=== PATIENT | female | born 1940 | race Caucasian/White ===

== ENCOUNTER 2018-08-08 10:19 | Inpatient (IN) | payer MEDICARE, OTHER ==
[2018-08-07 09:21] VITALS: BMI 34.4
[2018-08-15] MEDS ORDERED: Sodium Chloride 0.9% 10 ML ONE (06:45)
[2018-08-15 08:33] LABS: Hemoglobin 12.8 g/dL (12.0-16.0); Mean Corpuscular HGB CONC 33.1 g/dL (32.0-36.0); Mean Corpuscular Hemoglobin 29.2 pg (27.0-31.0); Mean Corpuscular Volume 88.1 fL (78.0-98.0); Mean Platelet Volume 6.7 fL (7.4-10.4); Platelet Count 250 thou/uL (130-400); RBC Distribution Width 12.6 % (11.5-14.5); White Blood Cell (WBC) Count 4.8 thou/uL (4.8-10.8)
[2018-08-15] MEDS ORDERED: Fentanyl 100 MCG/2 ML VIAL ONE ×5 (08:38→12:17)
[2018-08-15 08:44] LABS: Anion Gap 13 mmol/L (10-20); BUN (Urea Nitrogen) 16 mg/dL (9.8-20.1); Calc. Creatinine Clearance 78 mL/min (70-130); Calcium 10.5 mg/dL (7.8-10.44); Carbon Dioxide 28 mmol/L (23-31); Chloride 101 mmol/L (98-107); Estimated GFR-MDRD 66; Glucose 132 mg/dL (83-110); Potassium 4.7 mmol/L (3.5-5.1); Sodium 137 mmol/L (136-145)
[2018-08-15] MEDS ORDERED: SUGAMMADEX SODIUM 200 MG/2 ML VIAL ONE (10:28)
--- NOTE | 2018-08-15 10:44 | OP ---
DATE OF PROCEDURE: 08/15/2018 WORK AND FAMILY LIFE CONSULTANT: Cristy Sanchez PA-C PROCEDURE PERFORMED: L4-L5 decompressive laminectomy, posterolateral arthrodesis, pedicle screw instrumentation, left L4-L5 demineralized bone matrix and local morselized autograft. DESCRIPTION OF PROCEDURE: The patient was brought to the operating room and intubated. She was rolled in the prone position on gel-filled chest rolls. An incision was made exposing L4 and L5 and the level was confirmed by x-ray. We performed complete L5 and inferior L4 laminectomy was completed decompressing the neural elements at this level. We placed pedicle screws on the left at L4 and L5 using lateral fluoroscopic guidance and the position was confirmed by x-ray. The randee was secured between the screws and connected by nuts, which were final tightened. The wound was then extensively irrigated and maximum hemostasis was secured. Vancomycin powder was applied and a combination of demineralized bone matrix and local morselized autograft was laid over the right lamina and posterolateral surfaces for the purpose of arthrodesis. The wound was then closed in anatomic layers over drain. Job ID: [id number]
[2018-08-15] MEDS ORDERED: traMADol HCl 50 MG TAB PO PRN ×2 (11:31)
[2018-08-15] MEDS ORDERED: diphenhydrAMINE 25 MG CAP PO PRN (11:31)
[2018-08-15] MEDS ORDERED: Promethazine HCl 12.5 MG SUPP PR PRN (11:31)
[2018-08-15] MEDS ORDERED: Ondansetron PF 4 MG/2 ML Vial IM PRN (11:31)
[2018-08-15] MEDS ORDERED: Mag-Al 1200 mg/1200 mg/30 ML UDCUP PO PRN (11:31)
[2018-08-15] MEDS ORDERED: diphenhydrAMINE 50 MG/ML VIAL IVP PRN (11:31)
[2018-08-15] MEDS ORDERED: Promethazine 25 MG TAB PO PRN (11:31)
[2018-08-15] MEDS ORDERED: Milk Of Magnesia 30 ML UDCUP PO PRN (11:31)
[2018-08-15] MEDS ORDERED: tiZANidine HCl 4 MG TAB PO PRN (11:31)
[2018-08-15] MEDS ORDERED: Morphine 4 MG/ML VIAL SLOW IVP PRN (11:31)
[2018-08-15] MEDS ORDERED: Promethazine HCl 25 MG/ML VIAL IM PRN (11:31)
[2018-08-15] MEDS ORDERED: HYDROcodone/Acetaminophen 10/325 mg Tablet PO PRN ×2 (11:31)
[2018-08-15] MEDS ORDERED: Morphine 2 MG/ML SYRINGE SLOW IVP PRN (11:33)
[2018-08-15] MEDS ORDERED: CEFAZOLIN 2 GM in Premix Bag 1 BAG IVPB SCH (15:00)
[2018-08-15] MEDS: Ketorolac Tromethamine 30 MG/ML VIAL IVP SCH ×3 (15:29→23:39)
[2018-08-15] MEDS: Sodium Chloride 0.9% 1,000 ML IV SCH (15:35)
[2018-08-15] MEDS ORDERED: cloNIDine 0.1 MG TAB PO PRN (15:49)
[2018-08-15] MEDS ORDERED: Calcium Carbonate 500 MG ChewTAB PO PRN (15:49)
[2018-08-15] MEDS ORDERED: Senokot S 8.6-50 MG TAB PO PRN (15:49)
[2018-08-15] MEDS ORDERED: hydrALAZINE 20 MG/ML VIAL SLOW IVP PRN (15:49)
[2018-08-15] MEDS ORDERED: Acetaminophen 500 MG TAB PO PRN (15:49)
[2018-08-15] MEDS ORDERED: Benzonatate 100 MG CAP PO PRN (15:49)
[2018-08-15] MEDS ORDERED: Bisacodyl 5 MG TAB PO PRN (15:49)
[2018-08-15] MEDS ORDERED: Dextrose 5% in Water 1,000 ML IV PRN (15:49)
[2018-08-15] MEDS ORDERED: HumaLOG 300 UNITS/3 ML VIAL SC PRN ×2 (15:49)
[2018-08-15] MEDS ORDERED: Dextrose 50% Abboject 50 ML SYRINGE SLOW IVP PRN (15:49)
[2018-08-15] MEDS ORDERED: Diabetic Tussin 200 MG/10 ML UDCUP PO PRN (15:49)
--- NOTE | 2018-08-15 16:38 | PDOC.PN ---
- Subjective Encounter Start Date: 08/15/18 Encounter Start Time: 16:36 Subjective: s/p Lumbar laminectomy.feels well.pain under control -: no CP/Cough/SOB/dysuria/N/V/D - Objective MAR Reviewed: Yes Vital Signs & Weight: Vital Signs (12 hours) Pulse Ox 08/15/18 12:45 93 L Weight Weight 188 lb I&O: 08/14/18 08/15/18 08/16/18 06:59 06:59 06:59 Output Total 50 Balance -50 Result Diagrams: 08/15/18 08:14 08/15/18 08:14 Additional Labs: Accuchecks 08/15/18 14:47 POC Glucose 180 H Laboratory Tests 08/15/18 08/15/18 08:14 08:14 WBC 4.8 Hgb 12.8 Plt Count 250 BUN 16 Creatinine 0.84 Phys Exam - Physical Examination Constitutional: NAD HEENT: PERRLA, moist MMs, sclera anicteric, oral pharynx no lesions Neck: no nodes, no JVD, supple, full ROM Respiratory: no wheezing, no rales, no rhonchi, clear to auscultation bilateral Cardiovascular: RRR, no significant murmur, no rub Gastrointestinal: soft, non-tender, no distention, positive bowel sounds Musculoskeletal: no edema, pulses present Neurological: non-focal, normal sensation, moves all 4 limbs Dx/Plan (1) HTN (hypertension) Code(s): I10 - ESSENTIAL (PRIMARY) HYPERTENSION Status: Chronic Comment: stable. cont Amlodipine,Prinizide. Add prn antihypertensives (2) HLD (hyperlipidemia) Code(s): E78.5 - HYPERLIPIDEMIA, UNSPECIFIED Status: Chronic Comment: stable. cont Statin (3) DM2 (diabetes mellitus, type 2) Status: Chronic Comment: controlled. Add ISS w accuchecks. Hold Metformin for now (4) S/P lumbar laminectomy Code(s): Z98.890 - OTHER SPECIFIED POSTPROCEDURAL STATES Status: Acute Comment: pain control and rehab per Primary team - Plan plan discussed w/ family, out of bed/ambulate, DVT proph w/SCDs AM labs -: HD stable -: pr meds -: Pepcid BID -: ASA when Ok w NS * . Review of Systems - Review of Systems Constitutional: negative: fever, chills, sweats, weakness, malaise, other ENT: negative: Ear Pain, Ear Discharge, Nose Pain, Nose Discharge, Nose Congestion, Mouth Pain, Mouth Swelling, Throat Pain, Throat Swelling, Other Respiratory: negative: Cough, Dry, Shortness of Breath, Hemoptysis, SOB with Excertion, Pleuritic Pain, Sputum, Wheezing Cardiovascular: negative: chest pain, palpitations, orthopnea, paroxysmal nocturnal dyspnea, edema, light headedness, other Gastrointestinal: negative: Nausea, Vomiting, Abdominal Pain, Diarrhea, Constipation, Melena, Hematochezia, Other Genitourinary: negative: Dysuria, Frequency, Incontinence, Hematuria, Retention , Other Skin: negative: Rash, Lesions, Myn[place], Bruising, Other Neurological: negative: Weakness, Numbness, Incoordination, Change in Speech, Confusion, Seizures, Other - Medications/Allergies Allergies/Adverse Reactions: Allergies Allergy/AdvReac Type Severity Reaction Status Date / Time No Known Allergies Allergy Unverified 08/07/18 09:21 Medications: Current Medications Acetaminophen (Tylenol) 500 mg PO Q4H PRN PRN Reason: Fever > 101 Hydrocodone Bitart/Acetaminophen ([place] 10/325) 1 tab PO Q4H PRN PRN Reason: PAIN (1-3) Hydrocodone Bitart/Acetaminophen ([place] 10/325) 2 tab PO Q4H PRN PRN Reason: PAIN (4-6) Al Hydroxide/Mg Hydroxide (Maalox) 30 ml PO Q4H PRN PRN Reason: Heartburn or Indigestion Amlodipine Besylate (Norvasc) 10 mg PO DAILY [facility] Ascorbic Acid (Vitamin C) 500 mg PO DAILY [facility] Atorvastatin Calcium (Lipitor) 10 mg PO HS [facility] Benzonatate (Tessalon) 100 mg PO Q6H PRN PRN Reason: Cough Bisacodyl (Dulcolax) 10 mg PO DAILYPRN PRN PRN Reason: Constipation Calcium Carbonate (Tums) 1,000 mg PO Q4H PRN PRN Reason: Heartburn or Indigestion Cholecalciferol (Vitamin D) 400 units PO SuMoWeFrSa [facility] Cholecalciferol (Vitamin D) 800 units PO TuTh [facility] Clonidine (Catapres) 0.1 mg PO Q4H PRN PRN Reason: SBP > 160____ Coenzyme Q10 (Coenzyme Q10) 50 mg PO DAILY [facility] Cyanocobalamin (Vitamin B-12) 1,000 mcg PO DAILY [facility] Dextrose/Water (Dextrose 50%) 25 gm SLOW IVP PRN PRN PRN Reason: Hypoglycemia Diphenhydramine HCl (Benadryl) 25 mg PO Q6H PRN PRN Reason: Itching Diphenhydramine HCl (Benadryl) 25 mg IVP Q6H PRN PRN Reason: Itching Famotidine (Pepcid) 20 mg PO BID [facility] Glucagon (Glucagon) 1 mg IM PRN PRN PRN Reason: Hypoglycemia Guaifenesin (Robitussin Sf) 200 mg PO Q4H PRN PRN Reason: Cough Lisinopril/HCTZ (Prinizide 20-25) 1 tab PO DAILY [facility] Hydralazine HCl (Apresoline) 10 mg SLOW IVP Q4H PRN PRN Reason: SBP > 180 and HR < 70 Sodium Chloride (Normal Saline 0.9%) 1,000 mls @ 75 mls/hr IV .[id number] [facility] Last Admin: 08/15/18 15:35 Dose: Not Given Cefazolin Sodium/Dextrose 2 gm (/ Device) 50 mls @ 100 mls/hr IVPB 1500,2300 [facility] Stop: 08/15/18 23:29 Last Admin: 08/15/18 15:29 Dose: 50 mls Dextrose/Water (D5w) 1,000 mls @ 0 mls/hr IV .Q0M PRN PRN Reason: Hypoglycemia Insulin Human Lispro (Humalog) 0 units SC .MODERATE SLIDING SC PRN PRN Reason: Moderate Correctional Scale Insulin Human Lispro (Humalog) 0 units SC .BEDTIME SLIDING SC PRN PRN Reason: Bedtime Correctional Scale Ketorolac Tromethamine (Toradol) 15 mg IVP Q6HR [facility] Stop: 08/17/18 06:01 Last Admin: 08/15/18 15:29 Dose: Not Given Magnesium Hydroxide (Milk Of Magnesium) 30 ml PO Q12H PRN PRN Reason: Constipation Morphine Sulfate (Morphine) 2 mg SLOW IVP Q1H PRN PRN Reason: MOD BREAKTHRU PAIN Morphine Sulfate (Morphine) 4 mg SLOW IVP Q1H PRN PRN Reason: SEVERE BREAKTHROUGH PAIN Multivitamins (Theragran) 1 tab PO DAILY [facility] Multivitamins/Zinc (Stress 600 With Zinc) 1 tab PO DAILY [facility] Ondansetron HCl (Zofran) 4 mg IM Q24H PRN PRN Reason: Nausea/Vomiting Potassium Chloride (K-Dur) 20 meq PO QAM [facility] Promethazine HCl (Phenergan) 12.5 mg IM Q4H PRN PRN Reason: Nausea/Vomiting Promethazine HCl (Phenergan) 12.5 mg PO Q4H PRN PRN Reason: Nausea/Vomiting Promethazine HCl (Phenergan Suppository) 12.5 mg FL Q4H PRN PRN Reason: Nausea/Vomiting Senna/Docusate Sodium (Senokot S) 2 tab PO BID PRN PRN Reason: Constipation Sodium Chloride (Flush - Normal Saline) 10 ml IVF Q12HR [facility] Sodium Chloride (Flush - Normal Saline) 10 ml IVF PRN PRN PRN Reason: Saline Flush Tizanidine HCl (Zanaflex) 4 mg PO Q6H PRN PRN Reason: MUSCLE SPASM Tramadol HCl (Ultram) 50 mg PO Q6H PRN PRN Reason: PAIN (1-3) Tramadol HCl (Ultram) 100 mg PO Q6H PRN PRN Reason: PAIN (4-6)
[2018-08-15] MEDS ORDERED: metFORMIN 500 MG TAB PO SCH (17:00)
[2018-08-15] MEDS ORDERED: Atorvastatin Calcium 10 MG TAB PO SCH (21:00)
[2018-08-15] MEDS: Famotidine 20 MG TAB PO SCH (21:36)
[2018-08-15] MEDS: CEFAZOLIN 2 GM in Premix Bag 1 BAG IVPB SCH (23:38)
[2018-08-16] MEDS: Sodium Chloride 0.9% 1,000 ML IV SCH (01:28)
[2018-08-16] MEDS: CEFAZOLIN 2 GM in Premix Bag 1 BAG IVPB SCH (06:21)
[2018-08-16] MEDS: Ketorolac Tromethamine 30 MG/ML VIAL IVP SCH (06:22)
[2018-08-16] MEDS ORDERED: Potassium Chloride 20 MEQ TAB PO SCH (09:00)
[2018-08-16] MEDS ORDERED: Lisinopril/Hydrochlorothiazide 20/25 mg Tablet PO SCH (09:00)
[2018-08-16] MEDS ORDERED: Multivit, Therapeutic 1 TAB PO SCH (09:00)
[2018-08-16] MEDS ORDERED: Ubidecarenone 50 MG CAP PO SCH (09:00)
[2018-08-16] MEDS ORDERED: Ascorbic Acid 500 mg Chewable Tablet PO SCH (09:00)
[2018-08-16] MEDS ORDERED: TUMERIC FS SCH (09:00)
[2018-08-16] MEDS ORDERED: Cholecalciferol (Vitamin D3) 400 UNITS TAB PO SCH (09:00)
[2018-08-16] MEDS ORDERED: Amlodipine 10 MG TAB PO SCH (09:00)
[2018-08-16] MEDS ORDERED: Stress 600 With Zinc 1 TAB PO SCH (09:00)
[2018-08-16] MEDS ORDERED: Cyanocobalamin (Vitamin B-12) 1,000 MCG TAB PO SCH (09:00)
[2018-08-16] MEDS ORDERED: ST JOHN S WORT FS SCH (09:00)
[2018-08-16 09:09] VITALS: BP 135/72; TEMP 98.1
[2018-08-16] MEDS: Famotidine 20 MG TAB PO SCH (09:17)
--- NOTE | 2018-08-16 11:40 | DIS ---
DATE OF ADMISSION: 08/15/2018 DATE OF DISCHARGE: 08/16/2018 The patient is a 77-year-old female, status post L4-L5 decompression and fusion. Following the surgery, she was transitioned to the Med/Surg floor, where her pain has been well controlled with p.o. medication. She has only required one p.o. [place] tab overnight. She has been following a regular diet, tolerating well and she has been voiding appropriately. She has walked several laps throughout the department without any difficulty. This morning, she is awake, alert, comfortable, in no acute distress. She has free active range of motion of all extremities. No focal motor weakness. Her incision is dry and intact. Her CONSTANTINE drain is in place, 60 mL out overnight. We will plan to remove her CONSTANTINE drain and dismiss the patient to home. I discussed home care precautions. We will follow up with the patient in 2 weeks. She should hold her aspirin for the next 2 weeks. Job ID: [id number] [facility]
[2018-08-17] MEDS ORDERED: Cholecalciferol (Vitamin D3) 400 UNITS TAB PO SCH (09:00)
== END 2018-08-16 12:00 | disposition home or self-care (01) | DRG 460 ==
LOC: SURG A 08-15 06:28 → SURG B 08-15 12:56
PROVIDERS: ADMIT Neurological Surgery; ATTEND Neurological Surgery
PROC: 0SG0071 Fusion of Lumbar Vertebral Joint with Autologous Tissue Substitute, Posterior Approach, Posterior Column, Open Approach (ICD-10-PCS; principal; 2018-08-15)
DX: M43.16 Spondylolisthesis, lumbar region (principal); I10 Essential (primary) hypertension; E78.5 Hyperlipidemia, unspecified; M54.9 Dorsalgia, unspecified; E66.9 Obesity, unspecified; E11.9 Type 2 diabetes mellitus without complications; Z96.652 Presence of left artificial knee joint; Z90.710 Acquired absence of both cervix and uterus; Z68.34 Body mass index [BMI] 34.0-34.9, adult
CPT/HCPCS: 36416; 76000; 80048; 85027; 93005; 93010; C1713; C1768; J0690; J1885; J3010; J3370; J3490

== ENCOUNTER 2018-08-30 15:23 | Outpatient (CLI) | payer MEDICARE, OTHER ==
--- NOTE | 2018-08-30 15:44 | RAD ---
EXAM: Lumbar spine 3 views: HISTORY: Spondylolisthesis at L4-L5 COMPARISON: None FINDINGS: Laminectomy and pedicle screw placement changes at L4-L5 with grade 1 approximately 0.8 cm anterolist hesis of L4 on L5. No evidence for acute fracture or dislocation involving the visualized spine. There are disc osteophytosis and facet arthrosis changes. No evidence for a bone lesion. IMPRESSION: Spondylosis. No significant acute process.
== END 2018-08-30 15:24 | disposition home or self-care (01) ==
LOC: TBSIIMAG 15:23
PROVIDERS: ATTEND Neurological Surgery
DX: M43.16 Spondylolisthesis, lumbar region (principal); M47.816 Spondylosis without myelopathy or radiculopathy, lumbar region
CPT/HCPCS: 72100

== ENCOUNTER 2018-08-31 09:06 | Outpatient (CLI) | payer MEDICARE, OTHER ==
--- NOTE | 2018-08-31 10:03 | CT ---
CT of the lumbar spine: 08/31/2018 COMPARISON: None HISTORY: Lumbar spondylolisthesis, prior back surgery, left leg numbness TECHNIQUE: Axial CT imaging at 3 mm intervals through the lumbar spine without contrast. Coronal and sagittal reformatted imaging provided. FINDINGS: There is anterolisthesis of L4 on L5 measuring 1 cm. There is a pedicle screw on the left a t L4 and L5 with a vertically oriented interlocking screw. The left L5 pedicle screw is medially oriented, medial to the pedicle, traversing the region of the left lateral recess. There is scattered atherosclerotic calcification of the abdominal aorta and its branches. Image retroperitoneal structures appear grossly unremarkable. Evaluation for central canal and/or neural foraminal stenosis is limited on routine CT exam. T12-L1: No osseous cause of significant central canal or neural foraminal stenosis. Mild bilateral fa cet hypertrophy. L1-2: No osseous cause of significant central canal or neural foraminal stenosis L2-3: Bilateral facet hypertrophy and hypertrophy of the ligamentum flavum. Mild disc bulge. Mild candace ateral neural foraminal stenosis and mild/moderate central canal stenosis suspected. L3-4: There is disc space narrowing and disc bulge. Bilateral facet hypertrophy noted. At least mild bilateral neural foraminal stenosis and mild central canal stenosis. Left hemilaminectomy noted. L4-5: Bilateral laminectomy noted. Bilateral facet hypertrophy with at least mild left and moderate r ight neural foraminal stenosis. L5-S1: Disc space narrowing and vacuum disc formation. Mild disc bulge. Bilateral facet hypertrophy w ith encroachment on the neural foramina with moderate/severe right neural foraminal stenosis and moderate left neural foraminal stenosis. No worrisome lytic or blastic bone lesion. No acute fracture or evidence of dislocation is seen. IMPRESSION: Postoperative and degenerative changes of the lumbar spine as detailed above. Medial L5 p edicle screw on the left as above. If there is concern for underlying central canal and/or neural foraminal stenosis, lumbar spine myelogram suggested.
== END 2018-08-31 09:07 | disposition home or self-care (01) ==
LOC: TBSIIMAG 09:06
PROVIDERS: ATTEND Neurological Surgery
DX: M51.36 Other intervertebral disc degeneration, lumbar region (principal); M43.16 Spondylolisthesis, lumbar region; M47.816 Spondylosis without myelopathy or radiculopathy, lumbar region; Z98.890 Other specified postprocedural states
CPT/HCPCS: 72131

== ENCOUNTER 2018-09-03 05:40 | Inpatient (IN) | payer MEDICARE, OTHER ==
[2018-08-31 18:20] VITALS: BMI 34.4
[2018-09-03] MEDS ORDERED: Fentanyl 100 MCG/2 ML VIAL ONE ×3 (06:29→09:02)
[2018-09-03] MEDS ORDERED: Sodium Chloride 0.9% 10 ML ONE (06:32)
[2018-09-03] MEDS ORDERED: Thrombin 5000 UNITS/5 ML VIAL ONE (06:32)
[2018-09-03] MEDS ORDERED: Bacitracin Zinc Ointment 30 gm TUBE ONE (06:32)
[2018-09-03 06:36] LABS: #Eosinphils 0.2 thou/uL (0.0-0.7); #Lymphocytes 1.5 thou/uL (1.20-3.40); #Monocytes 0.5 thou/uL (0.11-0.59); %Eosinophils 4.9 % (0.0-10.0); %Lymphocytes 35.6 % (21.0-51.0); %Monocytes 11.6 % (0.0-10.0); %Neutrophils 46.9 % (42.0-75.0); Hemoglobin 11.9 g/dL (12.0-16.0); Mean Corpuscular HGB CONC 33.3 g/dL (32.0-36.0); Mean Corpuscular Hemoglobin 29.2 pg (27.0-31.0); Mean Corpuscular Volume 87.6 fL (78.0-98.0); Mean Platelet Volume 6.2 fL (7.4-10.4); Platelet Count 285 thou/uL (130-400); RBC Distribution Width 12.1 % (11.5-14.5); Red Blood Cell (RBC) Count 4.06 mill/uL (4.20-5.40); White Blood Cell (WBC) Count 4.2 thou/uL (4.8-10.8)
[2018-09-03 06:53] LABS: Anion Gap 15 mmol/L (10-20); BUN (Urea Nitrogen) 11 mg/dL (9.8-20.1); Calc. Creatinine Clearance 85 mL/min (70-130); Calcium 10.6 mg/dL (7.8-10.44); Carbon Dioxide 25 mmol/L (23-31); Chloride 99 mmol/L (98-107); Estimated GFR-MDRD 74; Glucose 133 mg/dL (83-110); Potassium 3.6 mmol/L (3.5-5.1); Sodium 135 mmol/L (136-145)
[2018-09-03] MEDS ORDERED: HYDROcodone/Acetaminophen 5/325 mg Tablet ONE (10:13)
--- NOTE | 2018-09-03 11:53 | OP ---
DATE OF PROCEDURE: 09/03/2018 DISABILITY INSURANCE HEARING OFFICER: Cristy Sanchez PA-C PROCEDURES PERFORMED: Exploration of spinal fusion, removal of hardware, placement of hardware, left L5. DESCRIPTION OF PROCEDURE: The patient was brought to the operating room and intubated. She was rolled in a prone position on gel-filled chest rolls. The previous incision was reopened and the prior hardware was identified. We removed the nuts and rods and removed the left L5 screw. We explored the spinal fusion and it was too early to be solid. We next placed a new left L5 screw using lateral fluoroscopic guidance and confirmed adequate positioning. The randee was secured between the L4 and L5 screws connected by nuts, which were final tightened. The wound was then extensively irrigated and maximum hemostasis was secured. Vancomycin powder was applied and the wound was then closed in anatomic layers. Job ID: [id number]
[2018-09-03] MEDS ORDERED: Lidocaine 1% PF 5 ML VIAL ONE (13:24)
[2018-09-03] MEDS ORDERED: Ketorolac Tromethamine 30 MG/ML VIAL ONE (13:24)
[2018-09-03] MEDS ORDERED: Rocuronium Bromide 10 MG/ML (10ML VIAL) ONE (13:24)
[2018-09-03] MEDS ORDERED: Glycopyrrolate 0.2 MG/ML 5 ML SYRINGE ONE (13:24)
[2018-09-03] MEDS ORDERED: Ondansetron PF 4 MG/2 ML Vial ONE (13:24)
[2018-09-03] MEDS ORDERED: PROPOFOL 200 MG/20 ML VIAL ONE (13:24)
== END 2018-09-03 11:15 | disposition home or self-care (01) | DRG 497 ==
LOC: SURG A 05:40
PROVIDERS: ADMIT Neurological Surgery; ATTEND Neurological Surgery
PROC: 0SP20JZ Removal of Synthetic Substitute from Lumbar Vertebral Disc, Open Approach (ICD-10-PCS; principal; 2018-09-03)
DX: M51.36 Other intervertebral disc degeneration, lumbar region (principal)
CPT/HCPCS: 36415; 72131; 76000; 80048; 85025; C1713; J0690; J1885; J2001; J2405; J2704; J3010; J3370; J3490

== ENCOUNTER 2018-09-18 14:39 | Outpatient (CLI) | payer MEDICARE, OTHER ==
--- NOTE | 2018-09-18 15:01 | RAD ---
Exam: 3 views lumbar spine COMPARISON: 08/30/2018 HISTORY: Lumbar fusion. Follow-up surgery. FINDINGS: Redemonstration of unilateral left-sided transpedicular screw at L4 and L5. Bone graft mate rial is noted. There is persistent anterolisthesis of L4 upon L5 currently measuring 0.8 cm (previous measuring 0.8 cm). No perihardware lucency. Laminectomy defect at L4 and L5 is noted. No fractures IMPRESSION: Stable lumbar fusion.
== END 2018-09-18 14:40 | disposition home or self-care (01) ==
LOC: TBSIIMAG 14:39
PROVIDERS: ATTEND Neurological Surgery
DX: M43.16 Spondylolisthesis, lumbar region (principal); Z98.1 Arthrodesis status
CPT/HCPCS: 72100

== ENCOUNTER 2018-10-30 13:53 | Outpatient (CLI) | payer MEDICARE, OTHER ==
--- NOTE | 2018-10-30 14:34 | RAD ---
EXAM: LUMBAR SPINE TWO VIEWS: 10/30/18 HISTORY: Lumbar spondylolisthesis. COMPARISON: 09/18/18. FINDINGS: Postop laminectomy and pedicle fusion changes at L4-L5 with stable grade I anterolisthesis of L4 on L 5. Generalized disc osteophytosis and facet arthrosis. Mild dextroscoliosis. IMPRESSION: Stable anterolisthesis of L4 on L5 with postop laminectomy and left pedicle screw placement. Mild dex troscoliosis. Minimal bone demineralization. Generalized spondylosis. POS: OFF
== END 2018-10-30 13:54 | disposition home or self-care (01) ==
LOC: TBSIIMAG 13:53
PROVIDERS: ATTEND Neurological Surgery
DX: M43.16 Spondylolisthesis, lumbar region (principal); M41.9 Scoliosis, unspecified; M47.816 Spondylosis without myelopathy or radiculopathy, lumbar region; M81.0 Age-related osteoporosis without current pathological fracture; Z98.890 Other specified postprocedural states
CPT/HCPCS: 72100

== ENCOUNTER 2019-04-04 08:25 | Outpatient (CLI) | payer MEDICARE, OTHER ==
--- NOTE | 2019-04-04 08:51 | RAD ---
LUMBAR SPINE 2 VIEWS: Date: 04/04/19 HISTORY: Lumbar radiculopathy. COMPARISON: 10/20/18. FINDINGS: Laminectomy and posterior fusion changes at L4-L5 with stable Grade I anterolisthesis of L4 on L5. Mi ld dextroscoliosis. Generalized spondylosis. IMPRESSION: Stable lumbar spine with postop changes at L4-L5. POS: TPC
== END 2019-04-04 08:26 | disposition home or self-care (01) ==
LOC: BICRAD 08:25
PROVIDERS: ATTEND Neurological Surgery
DX: M54.16 Radiculopathy, lumbar region (principal); Z98.1 Arthrodesis status
CPT/HCPCS: 72100